=== PATIENT | female | born 1945 | race Caucasian/White ===

== ENCOUNTER → 2022-07-07 13:28 | Outpatient (CLI) | payer MEDICARE, SELFPAY ==
[2022-07-07 14:14] LABS: COVID19 -Nasal RAPID Negative (Negative)
== END ==
PROVIDERS: Visit Provider Surgery
DX: Z01.812 Encounter for preprocedural laboratory examination (principal); Z20.822 Contact with and (suspected) exposure to COVID-19
CPT/HCPCS: 87635; C9803

== ENCOUNTER 2022-07-10 08:16 | Day surgery (SDC) | payer MEDICARE, SELFPAY ==
--- NOTE | 2022-07-10 | PATH_ITS ---
[facility] Accession Number: [id number] . 01 Material submitted: . PART A: colon - RIGHT COLON BIOPSY PART B: colon - TRANSVERSE COLON BIOPSY PART C: sigmoid colon - SIGMOID COLON BIOPSY PART D: colon - 45CM COLON POLYP PART E: rectum - RECTAL BIOPSY . 01 Clinical history: . SDC UNSPECIFIED ABDOMINAL PAIN FULL INCONTINENCE OF FECES DIARRHEA, UNSPECIFIED . 01 Diagnosis: A. Right Colon, Biopsy: Colonic mucosa with no diagnostic abnormality. Negative for active, chronic, and microscopic colitis. Negative for dysplasia and malignancy. . B. Transverse Colon Polyp, Biopsy: Hyperplastic polyp. . C. Sigmoid Colon Polyp, Biopsy: Tubular adenoma. . D. Colon Polyp at 45 cm, Biopsy: Tubular adenoma. . E. Rectum, Biopsy: Colorectal mucosa with minimal active inflammation and features of mucosal prolapse; please see comment. Negative for granulomas, dysplasia, or malignancy. [facility] 07/14/2022 1311 Local . 01 Comment: Part E: The findings in the rectal biopsy raise a differential diagnosis including infection, drug/toxin-induced injury, and solitary rectal ulcer. . 01 Electronically signed: . Trever Castillo MD, PhD, Pathologist NPI- [id number] . 01 Gross description: . Part A: RIGHT COLON BIOPSY: Received in formalin are 2 fragment(s) of shine, soft tissue measuring 0.3 x 0.1 x 0.1 cm to 0.2 x 0.1 x 0.1 cm submitted entirely in 1 cassette(s) Part B: TRANSVERSE COLON BIOPSY: Received in formalin is 1 fragment(s) of shine, soft tissue measuring 0.5 x 0.3 x 0.1 cm submitted entirely in 1 cassette(s) Part C: SIGMOID COLON BIOPSY: Received in formalin are 2 fragment(s) of shine, soft tissue measuring 0.7 x 0.2 x 0.2 cm to 0.5 x 0.3 x 0.2 cm submitted entirely in 1 cassette(s) Part D: 45CM COLON POLYP: Received in formalin are 2 fragment(s) of shine, soft tissue measuring 1.0 x 0.5 x 0.3 cm to 0.5 x 0.4 x 0.1 cm submitted entirely in 1 cassette(s) Part E: RECTAL BIOPSY: Received in formalin is 1 fragment(s) of shine, soft tissue measuring 0.2 x 0.2 x 0.1 cm submitted entirely in 1 cassette(s) /CPE 07/11/2022 0856 Local . 01 Pathologist provided ICD-10: R15.9, R19.7, D12.5, D12.6, K52.9 . 01 CPT . 693538, 737621, 775137, 660100, 358247 Performed at: 01 [facility] [address] [place] [address] [facility], [place], [place] [id number] MD Tevin Quezada MD Phone: [phone]
[2022-07-10 08:43] VITALS: BP 160/90; PULSE 94; RESP 16; TEMP 35.9; O2SAT 98; BMI 25.8
[2022-07-10] MEDS: SODIUM CHLORIDE 0.9% 1,000 ML 84 ML IV (08:56)
--- NOTE | 2022-07-10 09:25 | PM.HP.1 ---
History of Present Illness History of Present Illness Date Patient Seen: 07/10/22 Time Patient Seen: 09:25 Chief complaint: SDC Narrative: I reviewed my recent office note from January. No significant changes. Patient History Family & Social History Social History: household members spouse Tobacco & Substance use: Smoking Status Never smoker alcohol intake current alcohol intake frequency 0-2 drinks per day Substance Use Type does not use Meds Home Medications and Allergies Home Medications Medication Instructions Recorded Confirmed Type cholestyramine (with sugar) 4 gram 1 ea PO DAILY 07/10/22 07/10/22 History oral powder estradiol 1 mg tablet 1 mg PO DAILY 07/10/22 07/10/22 History mesalamine 250 mg capsule,extended 500 mg PO BID 07/10/22 07/10/22 History release (Pentasa) omeprazole 20 mg capsule,delayed 20 mg PO DAILY 07/10/22 07/10/22 History release Allergies Allergy/AdvReac Type Severity Reaction Status Date / Time hydrocodone Allergy ITCHING Verified 07/10/22 08:39 Review of Systems Review of Systems ROS: Yes All systems reviewed with the patient and are negative except as otherwise documented Exam Vital Signs (past 8 hours): - 07/10/22 08:43 Temperature 96.6 F L Pulse Rate 94 H Respiratory Rate 16 Blood Pressure 160/90 H Pulse Oximetry 98 Oxygen Delivery Method Room Air Oxygen Flow Rate 0 Oxygen Delivery Method Room Air Oxygen Flow Rate 0 Const General: cooperative HENMT Head: normal to inspection Eyes General: appearance normal, both eyes and all related structures Neck Neck: normal visual inspection Chest Chest: normal inspection of the chest Resp Effort & Inspection: normal respiratory effort Cardio Rate: regular rate GI Inspection: normal to inspection Skin General: no rashes or lesions noted Neuro General: patient alert and patient awake Extrem General: normal to inspection and no pedal edema Psych Appearance: grossly normal Assessment & Plan Assessment & Plan narrative: 77-year-old with Crohn's and diarrhea. She struggles with incontinence. Updated colonoscopy is pursued. Time Spent With Patient Critical Care time: I spent a total of [] minutes of critical care time on this patient's care today; this time is exclusive of procedural time.
--- NOTE | 2022-07-10 10:02 | PM.PREOP ---
Pre-operative Note COVID-19 COVID-19 status: Negative Result date/Date tested (Pos, Neg/Pending): 07/07/22 Criteria for continued procedure: Possibility delay results in more complex future surgery or treatment Interval Note History & Physical reviewed/Exam performed by Physician: Yes Changes to H&P: No ASA Class (for procedural sedation): II
[2022-07-10 11:04] VITALS: BP 131/74; PULSE 74; RESP 16; TEMP 37.2; O2SAT 99
--- NOTE | 2022-07-10 11:05 | P.OP.COLON_ITS ---
Operative Date/Time/Diagnoses Date of procedure: 07/10/22 Time of procedure: 11:05 Pre-op diagnosis: Crohn's, diarrhea, incontinence Post-op diagnosis: same Procedure & Clinicians Study performed: Colonoscopy with biopsies and hot snare polypectomy Same procedure as scheduled: Yes Indications: Diarrhea Crohn's (status post right hemicolectomy) and fecal incontinence Surgeon: Tyler Escalante Procedure Notes SCOAP/Timeout: Done Procedure in detail: After the risks and benefits were explained, written and verbal informed consent was obtained. The patient was brought into the procedure room and placed into the left lateral decubitus position. See nurse veterinary microbiologist notes for sedation details. Digital rectal examination was accomplished. The scope was introduced into the patient and advanced under direct visualization to the cecum as identified by the appendiceal orifice and ileocecal valve. The scope was slowly withdrawn to carefully examine the mucosa for any defects or lesions. Comprehensive imaging was accomplished throughout the rectum including the dentate line. The colon was decompressed, the scope was then removed from the patient who tolerated the procedure well. Pediatric colonoscope Bowel prep adequate Scope withdrawal time: 35 minutes Sedation minutes: 48 Complications: none Impression: There were some scattered diverticula in the left colon. Colon was somewhat tortuous. There was a 5-6 mm sessile polyp in the transverse colon removed with hot snare. There were 2 similarly sized polyps in the sigmoid colon also removed with hot snare. In the sigmoid the largest polyp was perhaps 7-8 mm. At about 45 cm from the anal verge there was a large sessile polyp. This measured perhaps 18 mm in greatest dimension. It was removed with hot snare polypectomy. The right hemicolectomy anastomosis was widely patent. There were a few scattered erosions at the anastomosis proper and just inside the benigno terminal ileum. Otherwise the small bowel mucosa appeared normal. There was no evidence of any macroscopic colitis throughout. Random right colon biopsies wer e taken for exclusion of microscopic colitis. In the rectum there was a small patch of erythema close to the dentate line that was additionally biopsied. Rectal examination prior to sedation demonstrated slightly reduced resting tone and reduced external anal sphincter strength on the command to squeeze. This was a prolonged procedure time. Twenty-two modifier is appropriate here. Endoscopic diagnosis 1. Colon polyps 2. Diverticulosis 3. Rectal erythema 4. Twisty colon 5. Patent right hemicolectomy anastomosis 6. Mild anastomotic inflammation. Post-procedure Plan for aftercare: 1. Await histopathology 2. Continue Pentasa 3. Continue Questran 4. Surveillance colonoscopy timing will be contingent on pathology results. Disposition: PACU
[2022-07-10 11:09] VITALS: BP 140/68; PULSE 69; RESP 14; O2SAT 97
[2022-07-10 11:14] VITALS: BP 149/80; PULSE 76; RESP 12; O2SAT 97
[2022-07-10 11:22] VITALS: BP 150/76; PULSE 77; RESP 16; TEMP 36.2; O2SAT 99
== END 2022-07-10 11:32 | disposition home or self-care (01) ==
PROVIDERS: Referring Provider Internal Medicine Gastroenterology; Visit Provider Internal Medicine Gastroenterology
PROC: 0DJD8ZZ Inspection of Lower Intestinal Tract, Via Natural or Artificial Opening Endoscopic (ICD-10-PCS; CPT 45378; principal; 2022-07-10 09:30)
DX: K50.90 Crohn's disease, unspecified, without complications (principal); R15.9 Full incontinence of feces; Z90.49 Acquired absence of other specified parts of digestive tract; D12.5 Benign neoplasm of sigmoid colon; D12.6 Benign neoplasm of colon, unspecified; K62.89 Other specified diseases of anus and rectum
CPT/HCPCS: 45385; 45380; J2704

== ENCOUNTER 2024-09-15 12:17 | Day surgery (SDC) | payer MEDICARE, SELFPAY ==
--- NOTE | 2024-09-15 | PATH_ITS ---
[facility] Accession Number: [id number] No. of containers..09 Tissue . 01 Material submitted: . PART A: gastrointestinal site - ANTRUM PART B: gastrointestinal site - GASTRIC POLYP PART C: esophagus - DISTAL ESOPHAGUS PART D: esophagus - MID ESOPHAGUS PART E: colon - RIGHT COLON PART F: colon - TRANSVERSE COLON PART G: colon - DESCENDING COLON PART H: colon - SIGMOID COLON PART I: rectum - RECTAL . 01 Diagnosis: A. ANTRUM, BIOPSY: Gastric mucosa with mild chronic inflammation. No Helicobacter pylori organisms identified on immunohistochemical evaluation. No intestinal metaplasia, dysplasia, or malignancy. . B. GASTRIC POLYP, BIOPSY: Gastric hyperplastic polyp. No Helicobacter pylori organisms identified on H/E slide. No intestinal metaplasia, dysplasia, or malignancy. . C. DISTAL ESOPHAGUS, BIOPSY: Squamcolumnar junctional mucosa with mild chronic inflammation. No goblet cell metaplasia or fungal organisms identified on H/E slide. No dysplasia or malignancy. . D. MID ESOPHAGUS, BIOPSY: Esophageal squamous epithelium with no significant diagnostic alterations. No evidence of increased intraepithelial eosinophils. No fungal organisms identified. No dysplasia or malignancy. . E. RIGHT COLON, BIOPSY: Colonic mucosa with no significant diagnostic alterations. No active inflammation, dysplasia, or malignancy identified. . F. TRANSVERSE COLON, BIOPSY: Colonic mucosa with no significant diagnostic alterations. No active inflammation, dysplasia, or malignancy identified. . G. DESCENDING COLON, BIOPSY: Colonic mucosa with no significant diagnostic alterations. No active inflammation, dysplasia, or malignancy identified. . H. SIGMOID COLON, BIOPSY: Colonic mucosa with no significant diagnostic alterations. No active inflammation, dysplasia, or malignancy identified. . I. RECTUM, BIOPSY: Colonic mucosa with focal nonspecific slight crypt architectural distortion. No active inflammation, dysplasia, or malignancy. [facility] 09/19/2024 1346 Local . 01 Electronically signed: . Mary Padgett MD, Pathologist NPI- [id number] . 01 Gross description: . A. Received in formalin with two patient identifiers and antrum biopsy, is a single shine soft tissue fragment, 0.5 cm in greatest dimension, submitted in A1. B. Received in formalin with two patient identifiers and gastric polyp, are two shine soft tissue fragments, 0.3 to 0.4 cm in greatest dimension, submitted in B1. C. Received in formalin with two patient identifiers and distal esophagus biopsy, is a single shine soft tissue fragment, 0.4 cm in greatest dimension, submitted in C1. D. Received in formalin with two patient identifiers and mid esophagus biopsy, are two shine soft tissue fragments, both measuring 0.3 cm in greatest dimension, submitted in D1. E. Received in formalin with two patient identifiers and right colon biopsy, are two shine soft tissue fragments, 0.3 to 0.4 cm in greatest dimension, submitted in E1. F. Received in formalin with two patient identifiers and transverse colon polyp, is a single shine soft tissue fragment, 0.3 cm in greatest dimension, submitted in F1. G. Received in formalin with two patient identifiers and descending colon biopsy, are two shine soft tissue fragments, 0.2 to 0.3 cm in greatest dimension, submitted in G1. H. Received in formalin with two patient identifiers and sigmoid colon biopsy, are two shine soft tissue fragments, both measuring 0.2 cm in greatest dimension, submitted in H1. I. Received in formalin with two patient identifiers and rectal biopsy, are two shine soft tissue fragments, both measuring 0.2 cm in greatest dimension, submitted in I1. ([id number]) /MRV 09/16/2024 1940 Local . 01 Microscopic: . A. An immunohistochemical stain was performed to evaluate for Helicobacter organisms and is negative. The control stain showed appropriate reactivity. . * This test was developed and the performance characteristics were validated by [employer]. It has not been cleared or approved by the U.S. Food and Drug Administration. . 01 Pathologist provided ICD-10: K29.70, K21.9, D13.1 . 01 CPT . 043996, 904111, 949340, 093100, 463632, 945021, 911554, 053642, 191779, [id number] Specimen Comment: A courtesy copy of this report has been sent to [phone] Performed at: 01 [facility] [address], [place], [place] [id number] MD Tevin Quezada MD Phone: [phone]
[2024-09-15 14:27] VITALS: BP 188/92; PULSE 89; RESP 12; TEMP 36.8; O2SAT 98
--- NOTE | 2024-09-15 14:30 | P.HP_ITS ---
History of Present Illness History of Present Illness Date Patient Seen: 09/15/24 Time Patient Seen: 14:30 Chief complaint: Dx Colonoscopy w/poss bx Narrative: 79-year-old female with a history of Crohn's and right ileocecal ectomy. As of her last colonoscopy in 2021 there was no sign of any ongoing colonic involvement. She remains on Pentasa. She had surgery this spring for rectal prolapse which has helped massively. However she still has problems with the fecal incontinence. She has a history of colon polyps and is due for surveillance secondary to the polyps. Historically she has been taking omeprazole 20 mg daily but had an episode of chest pain despite this. She bumped her dose up to 20 mg twice per day but even with that she had a couple of spells since that time. She has a globus sensation as well and some discomfort when food becomes temporarily halted in the esophagus. She reports today for both EGD and colonoscopy. [facility] Social History household members: spouse Smoking Status: Never smoker alcohol intake: current Meds Home Medications and Allergies Home Medications Medication Instructions Recorded Confirmed Type cholestyramine (with sugar) 4 gram 1 ea PO DAILY 07/10/22 07/10/22 History oral powder estradiol 1 mg tablet 1 mg PO DAILY 07/10/22 07/10/22 History mesalamine 250 mg capsule,extended 500 mg PO BID 07/10/22 07/10/22 History release (Pentasa) omeprazole 20 mg capsule,delayed 20 mg PO DAILY 07/10/22 07/10/22 History release Allergies Allergy/AdvReac Type Severity Reaction Status Date / Time hydrocodone Allergy ITCHING Verified 09/15/24 14:24 Review of Systems Review of Systems ROS: Yes All systems reviewed with the patient and are negative except as otherwise documented Exam Vital Signs (past 8 hours): - 09/15/24 14:27 Temperature 98.3 F Pulse Rate 89 Respiratory Rate 12 Blood Pressure 188/92 H Pulse Oximetry 98 Oxygen Delivery Method Room Air Oxygen Delivery Method Room Air Const General: cooperative HENMT Head: normal to inspection Eyes General: appearance normal, both eyes and all related structures Neck Neck: normal visual inspection Chest Chest: normal inspection of the chest Resp Effort & Inspection: normal respiratory effort Cardio Rate: regular rate GI Inspection: normal to inspection Skin General: no rashes or lesions noted Neuro General: patient alert and patient awake Extrem General: normal to inspection and no pedal edema Psych Appearance: grossly normal Assessment & Plan Assessment & Plan narrative: 79-year-old female with refractory substernal chest pain, intermittent dysphagia with a spastic quality, globus sensation, history of Crohn's, personal history of colon polyps. EGD and colonoscopy are pursued. Time-Based Coding :: [TOTAL MINUTES] spent with patient and on the chart (including review of chart, obtaining history, exam, reviewing outside data, placing orders, documenting exam and treatment plan, and counseling patient) on [DATE].
--- NOTE | 2024-09-15 14:33 | PM.PREOP ---
Pre-operative Note Interval Note History & Physical reviewed/Exam performed by Physician: Yes Changes to H&P: No ASA Class (for procedural sedation): II
--- NOTE | 2024-09-15 16:03 | P.OP.EGD&C_ITS ---
Operative Date/Time/Diagnoses Date of procedure: 09/15/24 Time of procedure: 16:03 Pre-op diagnosis: Globus, dysphagia, chest pain, reflux, history of Crohn's, history of colon polyps Post-op diagnosis: same Procedure & Clinicians Study performed: EGD with biopsies and colonoscopy with biopsies. Same procedure as scheduled: Yes Indications: Globus, dysphagia, chest pain, reflux, history of Crohn's, history of colon polyps Surgeon: Tyler Escalante Procedure Notes SCOAP/Timeout: Done Procedure in detail: After the risks and benefits were explained, written and verbal informed consent was obtained. The patient was brought into the procedure room and placed into the left lateral decubitus position. Please see anesthesia note for sedation details. The scope was introduced into the mouth through the bite block and advanced under direct visualization to the 2nd portion of the duodenum. The scope was slowly withdrawn carefully examining the mucosa for any defects or lesions. Retroflexed views were accomplished in the stomach. The stomach was decompressed, the scope was then removed from the patient who tolerated the procedure well. The patient was then turned around. A digital rectal examination was acc omplished. The scope was introduced into the rectum and advanced to the right hemicolectomy anastomosis. The neoterminal ileum was interrogated distally. The scope was then slowly withdrawn to carefully examine the mucosa for any defects or lesions. Multiple direct views were made through the dentate line for exclusion of pathology the colon was decompressed the scope removed from the patient who tolerated the procedure well. Pediatric colonoscope Bowel prep adequate Scope withdrawal time: 19 minutes Sedation minutes: 51 Complications: none Impression: 1. Duodenal: This was visually normal from the bulb through to the 2nd portion. 2. Stomach: Patient had a mild gastropathy and biopsies were taken from the antrum for exclusion of Helicobacter infection. There were a few diminutive benign-appearing polyps in the gastric body. One of these was sampled with cold forceps for histologic analysis. Retroflexed views of the LES disclosed a small sliding hiatal hernia. 3. Esophagus: The squamocolumnar junction for the most part correlated with the top of the gastric folds. GEJ was at 40 cm from the incisors. There was a tongue of salmon-colored mucosa extending up into the distal esophagus by perhaps 1 cm. If this is Barretts it would register as C 0 M 1. Biopsy was taken from the tongue of salmon-colored mucosa. I did not appreciate any stricturing and no overt esophagitis. There were perhaps some very subtle circumferential rings throughout the mid and proximal esophagus. Midesophageal biopsies were therefore acquired to exclude eosinophilic infiltration. 4. neoterminal ileum: There were a few superficial small ulcers identified. No stricture no mass lesion apparent. 5. Colon: The patient had a patent and normal-appearing right hemicolectomy anastomosis. I did not appreciate any evidence of inflammation in the colon or rectum. Segmental biopsies were taken from the right colon, transverse, descending, sigmoid, and rectum for histopathologic analysis. Diverticulosis was noted in the sigmoid. The sigmoid colon was exceedingly tortuous. Even though the patient has had a right hemicolectomy, the colon seemed somewhat redundant as well. I did not identify any significant polyps throughout. The patient had reasonable to slightly less than average resting rectal tone. Grade 1 internal hemorrhoids. No evidence of inflammation in the rectum or at the dentate line. Endoscopic diagnosis 1. Small sliding hiatal hernia 2. 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 Possible eosinophilic esophagitis 4. Diminutive gastric polyps 5. Gastropathy 6. Redundant and tortuous colon 7. Diverticulosis 8. Grade 1 hemorrhoids 9. Patent right hemicolectomy anastomosis 10. Scant mild inflammation of the neoterminal ileum. Post-procedure Plan for aftercare: 1. Await histology. 2. Continue anti-reflux therapy. 3. Consider gallbladder workup with ultrasound and possibly HIDA scan. 4. If this is negative, consider esophageal pH/manometry 5. Repeat colonoscopy 2 years for surveillance. Disposition: PACU
[2024-09-15 16:05] VITALS: BP 169/80; PULSE 77; RESP 17; TEMP 36.4; O2SAT 96
[2024-09-15 16:13] VITALS: BP 160/86; PULSE 72; RESP 11; O2SAT 97
[2024-09-15 16:19] VITALS: BP 150/75; PULSE 67; RESP 10; O2SAT 98
[2024-09-15 16:23] VITALS: BP 172/82; PULSE 63; RESP 10; O2SAT 96
[2024-09-15 16:36] VITALS: BP 179/88; PULSE 64; RESP 17; TEMP 36.1; O2SAT 98
== END 2024-09-15 16:47 | disposition home or self-care (01) ==
PROVIDERS: Referring Provider Internal Medicine Gastroenterology; Visit Provider Internal Medicine Gastroenterology
PROC: 0DJ08ZZ Inspection of Upper Intestinal Tract, Via Natural or Artificial Opening Endoscopic (ICD-10-PCS; CPT 45380; principal; 2024-09-15 13:30)
PROC: 0DJD8ZZ Inspection of Lower Intestinal Tract, Via Natural or Artificial Opening Endoscopic (ICD-10-PCS; CPT 45378; 2024-09-15 13:30)
DX: Z12.11 Encounter for screening for malignant neoplasm of colon (principal); Z86.0100 Personal history of colon polyps, unspecified; Z87.19 Personal history of other diseases of the digestive system; Z90.49 Acquired absence of other specified parts of digestive tract; K21.9 Gastro-esophageal reflux disease without esophagitis; R07.9 Chest pain, unspecified; F45.8 Other somatoform disorders; K44.9 Diaphragmatic hernia without obstruction or gangrene; K31.9 Disease of stomach and duodenum, unspecified; K31.7 Polyp of stomach and duodenum; K57.30 Diverticulosis of large intestine without perforation or abscess without bleeding; K64.0 First degree hemorrhoids; K29.50 Unspecified chronic gastritis without bleeding; K20.90 Esophagitis, unspecified without bleeding
CPT/HCPCS: 45380; 43239; J2704